=== PATIENT | male | born 1995 | race Caucasian/White ===

== ENCOUNTER 2019-07-22 14:20 | Emergency (ER) | payer MEDICAID ==
[~2019-07-22] VITALS: Ht 172.7 cm; Wt 116.1 kg
[2019-07-22 14:31] VITALS: Ht 172.7 cm; Wt 116.1 kg
[2019-07-22 15:37] VITALS: BP 145/83
== END 2019-07-22 15:37 | disposition home or self-care (01) ==
LOC: ED 14:20
DX: L03.114 Cellulitis of left upper limb (principal); W57.XXXA Bitten or stung by nonvenomous insect and other nonvenomous arthropods, initial encounter; Y93.89 Activity, other specified; Y92.89 Other specified places as the place of occurrence of the external cause; Y99.8 Other external cause status
CPT/HCPCS: Q0163

== ENCOUNTER 2019-10-15 13:00 | Emergency (ER) | payer BC, MEDICAID ==
[~2019-10-15] VITALS: Ht 175.3 cm; Wt 114.8 kg
[2019-10-15 13:17] VITALS: Ht 175.3 cm; Wt 114.8 kg
[2019-10-15 14:21] VITALS: BP 149/98
== END 2019-10-15 14:21 | disposition home or self-care (01) ==
LOC: ED 13:00
DX: J06.9 Acute upper respiratory infection, unspecified (principal)
CPT/HCPCS: 87804

== ENCOUNTER 2020-08-30 23:31 | Emergency (ER) | payer MEDICAID, SELFPAY ==
[~2020-08-30] VITALS: Ht 172.7 cm; Wt 117.0 kg
[2020-08-30 23:37] VITALS: Ht 172.7 cm; Wt 117.0 kg
[2020-08-31 01:55] VITALS: BP 146/84
== END 2020-08-31 01:55 | disposition home or self-care (01) ==
LOC: ED 23:31
DX: U07.1 COVID-19 (principal); B34.9 Viral infection, unspecified
CPT/HCPCS: 87804; U0003